=== PATIENT | male | born 1940 | race Caucasian/White ===

== ENCOUNTER → 2018-01-02 | Outpatient (CLI) | payer MEDICARE, BC ==
[2018-01-02 14:35] LABS: HEMATOCRIT 38.4 % (42.0-52.0); HEMOGLOBIN 13.1 g/dl (13.5-18.0); MEAN CELL VOLUME 100 fl (80.0-100.0); MEAN CORPUSCULAR HEMOGLOBIN 34 pg (27.0-31.0); MEAN CORPUSCULAR HGB CONC 34 g/dl (33.0-37.0); MEAN PLATELET VOLUME 9.3 fl (7.4-10.4); PLATELET COUNT 297 K/mm3 (130-400); RED BLOOD COUNT 3.86 M/mm3 (4.20-5.60); REDCELL DISTRIBUTION WIDTH-CV 12.2 % (11.5-14.5)
[2018-01-02 14:54] LABS: ERYTHROCYTE SEDIMENTATION RATE 16 mm/hr (0-30)
== END ==
LOC: COL.LAB 13:56
PROVIDERS: Orthopaedic Surgery
DX: M25.561 Pain in right knee (principal); M25.562 Pain in left knee; Z96.651 Presence of right artificial knee joint

== ENCOUNTER 2018-02-12 09:42 | Inpatient (IN) | payer MEDICARE, BC ==
[~2018-02-12] VITALS: Ht 172.7 cm; Wt 81.6 kg
[2018-03-11] MEDS ORDERED: OMEGA-3 1000 MG1 CAP PO (15:09)
[2018-03-11] MEDS ORDERED: OCUVITE1 TA1 PO (15:09)
[2018-03-11] MEDS ORDERED: TYLENOL 325MG325 MG PO (15:10)
[2018-03-11] MEDS ORDERED: VITAMIN C500 MG PO (15:10)
[2018-03-11] MEDS ORDERED: GLUCOSAMIN 500 PO (15:11)
[2018-03-11] MEDS ORDERED: COZAAR 50MG50 MG/TAB PO (15:11)
[2018-03-11] MEDS ORDERED: JANUVIA 100MG100 MG PO (15:11)
[2018-03-11] MEDS ORDERED: GLUCOPHAGE1000 MG PO (15:12)
[2018-03-11] MEDS ORDERED: NEURONTIN300 MG/CAP PO (15:12)
[2018-03-11] MEDS ORDERED: GLUCOTROL 5M5 MG/TAB PO (15:13)
[2018-03-11] MEDS ORDERED: NEURONTIN600 MG/TAB PO (15:13)
[2018-03-11] MEDS ORDERED: ZOCOR 40MG40 MG PO (15:13)
[2018-03-11] MEDS ORDERED: LANTUS100 U/ML SQ (15:14)
[2018-03-12] VITALS (12 sets, daily range): BP systolic 118–153; BP diastolic 46–76; PULSE 49–81; TEMP 97.9–98.8
[2018-03-12] MEDS ORDERED: TYLENOL 500MG500 MG PO (06:00)
[2018-03-12] MEDS ORDERED: PRAVACHOL 40MG40 MG PO (06:06)
[2018-03-12] MEDS ORDERED: ZYLOPRIM 300MG300 MG PO (06:06)
[2018-03-12] MEDS ORDERED: ULTRAM 50MG TAB50 MG PO (06:07)
[2018-03-12] MEDS ORDERED: LIORESAL 1010 MG/TAB PO (06:07)
[2018-03-12] MEDS ORDERED: PROTONIX 40MG T40 MG PO (06:08)
[2018-03-12 13:22] LABS: CALCIUM 8.9 mg/dL (8.4-10.2); CREATININE, serum 0.89 mg/dL (0.66-1.25); POTASSIUM 4.4 mmol/L (3.4-5.0)
[2018-03-12] MEDS ORDERED: GLUCOPHAGE1000 MG PO (19:19)
[2018-03-13 03:47] VITALS: BP 115/58; PULSE 75; TEMP 98.2
[2018-03-13 07:15] LABS: HEMOGLOBIN 11.3 g/dl (13.5-18.0)
[2018-03-13 07:18] VITALS: BP 127/57; PULSE 78; TEMP 98.5
[2018-03-13 07:19] LABS: HEMATOCRIT 33.7 % (42.0-52.0)
[2018-03-13 12:09] VITALS: BP 144/64; PULSE 78; TEMP 98.6
[2018-03-13 15:18] VITALS: BP 164/58; PULSE 99; TEMP 99.5
[2018-03-13 20:41] VITALS: BP 117/73; PULSE 98; TEMP 99.2
[2018-03-13 23:55] VITALS: BP 145/62; PULSE 106; TEMP 100.3
[2018-03-14 04:08] VITALS: BP 145/62; PULSE 106; TEMP 100.2
[2018-03-14 06:28] VITALS: TEMP 98.6
[2018-03-14 08:06] VITALS: BP 145/61; PULSE 63; TEMP 98.8
[2018-03-14] MEDS ORDERED: JANUVIA 100MG100 MG PO (09:42)
[2018-03-14] MEDS ORDERED: XARELTO10 MG PO (09:48)
[2018-03-14] MEDS ORDERED: ROXICODONE 55 MG/TAB PO (09:49)
[2018-03-14] MEDS ORDERED: NORCO 325 MG-7.1 TAB PO (09:49)
[2018-03-14] MEDS ORDERED: PROTONIX 40MG T40 MG PO (11:00)
[2018-03-14] MEDS ORDERED: TYLENOL 500MG500 MG PO (11:01)
[2018-03-14] MEDS ORDERED: ZANTAC 150MG T150 MG PO (11:02)
[2018-03-14] MEDS ORDERED: SENOKOT S 50 MG1 TAB PO (11:02)
[2018-03-14] MEDS ORDERED: MILK OF MA400 MG/52 PO (11:03)
[2018-03-14 12:09] VITALS: TEMP 98.1
== END 2018-03-14 12:32 | disposition home health service (06) | DRG 489 ==
LOC: JCC 03-12 05:02
PROVIDERS: Orthopaedic Surgery; Physician Assistant
PROC: 0SPC09Z Removal of Liner from Right Knee Joint, Open Approach (ICD-10-PCS; 2018-03-12)
PROC: 0SUV09Z Supplement Right Knee Joint, Tibial Surface with Liner, Open Approach (ICD-10-PCS; 2018-03-12)
PROC: 0SBC0ZZ Excision of Right Knee Joint, Open Approach (ICD-10-PCS; principal; 2018-03-12 07:30)
DX: T84.89XA Other specified complication of internal orthopedic prosthetic devices, implants and grafts, initial encounter (principal); E11.40 Type 2 diabetes mellitus with diabetic neuropathy, unspecified; I10 Essential (primary) hypertension; K21.9 Gastro-esophageal reflux disease without esophagitis; N40.0 Benign prostatic hyperplasia without lower urinary tract symptoms; M10.9 Gout, unspecified; E78.5 Hyperlipidemia, unspecified; Z79.84 Long term (current) use of oral hypoglycemic drugs; Z87.891 Personal history of nicotine dependence
CPT/HCPCS: 99223; 99232-AI; A4314; A9284; C1776; J0690; J1815; J2250; J2704; J7030; J7120

== ENCOUNTER → 2018-02-27 | Outpatient (CLI) | payer MEDICARE, BC ==
[2018-02-27 10:27] LABS: HIV 1/2 Antibodies Non-Reactive; HIV-1p24 Antigen Non-Reactive
== END ==
LOC: COL.LAB 08:39
PROVIDERS: Family Medicine
DX: Z01.812 Encounter for preprocedural laboratory examination (principal); M25.561 Pain in right knee

== ENCOUNTER 2018-10-12 06:57 | Day surgery (SDC) | payer MEDICARE, BC ==
[2018-10-12] VITALS (9 sets, daily range): BP systolic 117–155; BP diastolic 53–73; PULSE 56–86; TEMP 97.4–98.3
[~2018-10-12] VITALS: Ht 172.7 cm; Wt 77.3 kg
[~2018-10-12 06:57] MED LIST: COZAAR 50MG50 MG/TAB PO; GLUCOPHAGE1000 MG PO; GLUCOSAMIN 500 PO; GLUCOTROL 5M5 MG/TAB PO; JANUVIA 100MG100 MG PO; LANTUS100 U/ML SQ; LIORESAL 1010 MG/TAB PO; MILK OF MA400 MG/52 PO; NEURONTIN300 MG/CAP PO; NORCO 325 MG-7.1 TAB PO; OCUVITE1 TA1 PO; OMEGA-3 1000 MG1 CAP PO; PRAVACHOL 40MG40 MG PO; PROTONIX 40MG T40 MG PO; ROXICODONE 55 MG/TAB PO; STOOL SOFTENER100 M2 PO; TYLENOL 325MG325 MG PO; TYLENOL 500MG500 MG PO; ULTRAM 50MG TAB50 MG PO; VITAMIN C500 MG PO; XARELTO10 MG PO; ZANTAC 150MG T150 MG PO; ZOCOR 40MG40 MG PO; ZYLOPRIM 300MG300 MG PO
--- NOTE | 2018-10-12 12:00 | NUR ---
PATIENT ADMITED INTO ROOM 326 POST OP RIGHT SHOULDER SCOPE. RUE DRESSING IS CD&I WITH OCCLUSIVE TAPE AND ICE PACK. ABDUCTOR SLING TO RUE. NO C/O PAIN. PATIENT IS ABLE TO MOVE RUE FINGERS AND HAS GOOD CMS. VSS. HEAD TO TOE WNL. BS 136. NO C/O N/V. LIQUIDS AT BEDSIDE. IV FLUIDS INFUSING INTO LEFT HAND IV. ORIENTED TO ROOM. CALL LIGHT IN REACH. NO FAMILY OR FRIENDS AT BEDSIDE.
--- NOTE | 2018-10-12 17:00 | NUR ---
PATIENT INDEPENDENT IN ROOM. GAIT STEADY. PATIENT HAS BEEN TO BATHROOM X2 TO VOID. ATE 100% OF SUPPER. NO NEEDS.
--- NOTE | 2018-10-12 22:00 | NUR ---
ASSUMED CARE FOR ARCHITECTURE INTERN. ASSESSMENT COMPLETE. VS STABLE. DRESSING TO RIGHT [id number]/INTACT. IMMOBOLIZER/ABDUCTOR PILLOW ON. APPEARS TO BE TO LOW IN POSITIONING-REFUSING TO ALLOW NURSING STAFF TO ADJUST, STATES "ITS FINE, DONT WANT IT MOVED WHILE I AM IN BED." REFUSED SCD'S AND FINALLY ACCEPTED AFTER TEACHING DONE ON IMPORTANCE. DENIES PAIN. CALL LIGHT WITHIN REACH. BED IN LOW POSITIONS-WHEELS LOCKED. ENCOURAGED TO MYRNA FOR QUESTIONS OR CONCERNS. VERBALIZES UNDERSTANDING. WILL CONTINUE TO MONITOR.
--- NOTE | 2018-10-13 | NUR ---
THIS NURSE TO ROOM TO ADMINISTER ANTIBIOTICS. IMMOBOLIZER CLEARLY NOT IN PROPER PLACEMENT. REFUSES TO ALLOW FOR ANY ADJUSTEMENTS AT THIS TIME. STATES "LEAVE IT ALONE, ITS WHERE I WANT IT AND I CANT SLEEP ANYWAY." TEACHING COMPLETE ON PROPER POSITIONING. VERBALIZES UNDERSTANDING BUT REFUSES REPOSITIONING. STATES "CANT I JUST TAKE IT OFF." ENCOURAGED TO LEAVE ON AND TO ALLOW FOR ADJUSTMENT. STATES HE WILL LEAVE IT ON BUT WILL NOT ALLOW FOR AN ADJUSTMENT. ALSO REQUESTING SCD'S TO BE REMOVED. TEACHING COMPLETE ON NEED FOR SCD'S. VERBALIZES UNDERSTANDING AND MORE ACCEPTING OF SCDS. ENCOURAGED TO CALL FOR QUESTIONS OR CONCERNS. CALL LIGHT WITHIN REACH. BED IN LOW POSITION-WHEELS LOCKED. WILL MONITOR.
[2018-10-13 04:44] VITALS: BP 120/69; PULSE 70; TEMP 98.2
--- NOTE | 2018-10-13 05:20 | NUR ---
HAS RESTED OFF AND ON THROUGH THE NIGHT. DID LEAVE IMMOBOLIZER ON THROUGH THIS SHIFT. REFUSED HOT WATER FOR BOWEL REGIMEN TODAY. ICE PACK APPLIED. SCDS ON. CALL LIGHT WITHIN REACH. BED IN LOW POSITION/WHEELS LOCKED. WILL CONTINUE TO MONITOR.
--- NOTE | 2018-10-13 06:55 | NUR ---
awake resting in bed, bedside shift report received from ESSIE Zepeda
[2018-10-13 07:30] VITALS: BP 137/68; PULSE 92; TEMP 98.3
--- NOTE | 2018-10-13 08:45 | NUR ---
up in chair and has had breakfast and tolerated well, full assessment completed,
[2018-10-13] MEDS ORDERED: NORCO 325 MG-7.1 TAB PO (09:06)
[2018-10-13] MEDS ORDERED: ROXICODONE 55 MG/TAB PO (09:07)
--- NOTE | 2018-10-13 09:52 | NUR ---
have reviewed assessment completed by student nurse and in agreement with that assessment
--- NOTE | 2018-10-13 09:58 | NUR ---
MIQUEL and MIQUEL student met with the patient to discuss discharge plan. The patient lives alone in [place]. He states that his brother, Ermias, and his nephew live out of state, but that he has friend support in the community. He reports independence with ADLs and has cane, walker, and wheelchair. The patient's PCP is Dr. Tone Carter and he receives his medications by delivery through the [facility] in [place]. He reports no difficulties obtaining his meds. The patient's advanced directives are in EMR. MIQUEL discussed physical therapies recommendation of home health or continuing with the plan of outpatient therapy. The patient reports that he is unable to drive at this time, due to his arm and would not have transportation to outpatient therapy. The patient reports that he would be interested in home health. MIQUEL presented the patient with Medicare.gov's list of home health agencies that serve [place]. The patient chose [facility]. MIQUEL contacted and faxed a referral to Flaca at [facility]. Flaca reports that they are able to accept the patient for services. MIQUEL informed the patient and updates the patient's nurse. SW to continue to follow.
[2018-10-13 11:15] VITALS: BP 136/68; PULSE 86; TEMP 97.9
--- NOTE | 2018-10-13 11:41 | NUR ---
The patient is to discharge back home today, 10/13, with home health services for PT/OT through [facility]. No additional needs at this time.
--- NOTE | 2018-10-13 11:55 | NUR ---
discharge instructions given to patient, verbalizes understanding
--- NOTE | 2018-10-13 12:05 | NUR ---
discharged ambulatory to [facility] where his ride will pick him up
== END 2018-10-13 12:05 | disposition home or self-care (01) ==
LOC: SDCO 06:57 → SURG 12:00 → SDCO 14:00
DX: S46.011A Strain of muscle(s) and tendon(s) of the rotator cuff of right shoulder, initial encounter (principal); M19.90 Unspecified osteoarthritis, unspecified site; E11.9 Type 2 diabetes mellitus without complications; E78.00 Pure hypercholesterolemia, unspecified; G89.18 Other acute postprocedural pain; I10 Essential (primary) hypertension; K21.9 Gastro-esophageal reflux disease without esophagitis; G89.29 Other chronic pain; D64.9 Anemia, unspecified; Z79.84 Long term (current) use of oral hypoglycemic drugs; Z91.040 Latex allergy status; Z83.3 Family history of diabetes mellitus; Z82.49 Family history of ischemic heart disease and other diseases of the circulatory system; Z96.651 Presence of right artificial knee joint
CPT/HCPCS: OP; A4619; J0171; J0690; J1100; J1650; J2250; J2405; J2704; J2795; J3010; J7030

== ENCOUNTER 2019-01-06 11:09 | Inpatient (IN) | payer MEDICARE, BC ==
[~2019-01-06] VITALS: Ht 172.7 cm; Wt 80.0 kg
[2019-03-25] VITALS (12 sets, daily range): BP systolic 116–153; BP diastolic 60–80; PULSE 67–117; TEMP 97.5–98.6
--- NOTE | 2019-03-25 06:54 | NUR ---
PT PREPPED FOR SURGERY, VSS, PRE OP MEDS GIVEN , ACCUCHECK 128. PT A/O X3. TO SURGERY PER BED WITH CLAUDIO @ 7962.
--- NOTE | 2019-03-25 11:00 | NUR ---
PATIENT ARRIVED TO UNIT FROM PACU AT 1055. PATIENT IS ALERT AND ORIENTED AND VSS. PATIENT HAS IV IN LEFT FOREARM WITH NS RUNNING. PATIENT DOES HAVE LATEX ALLERGY. PATIENT HAS HISTORY OF HTM, GERD, AND BILATERAL LOWER EXTREM NEUROPATHY, AND TYPE 2 DM. PATIENT HAS 16 [place] LAFLEUR. URINE IS YELLOW AND CLEAR. PATIENT HAS FOAM TAPE DRESSING ON RIGHT SHOULDER WITH SLING AND ICE PACK APPLIED. PATIENT DENIES PAIN AT THIS TIME. CALL LIGHT WITHIN REACH, WILL CONTINUE TO MONITOR
--- NOTE | 2019-03-25 15:07 | NUR ---
MIQUEL met with the patient to discuss discharge plan. The patient lives alone in [place]. He states that his brother, Ermias (ph#[phone]), lives in [place]. He states that he has a good friend and neighbor, Niels Avila (ph#[phone]), that helps him out. He reports independence with ADLs and has a cane and walker. The patient's PCP is Dr. Tone Carter and he receives his medications at the [facility] in [place]. He reports no difficulties obtaining his meds. The patient does not have advanced directives in EMR, but he states that he does have them completed and at home. He states that he designated his neighbor, Niels. He also reports that his next of kin is his brother, Ermias. The patient reports that he plans to return home upon discharge and would be interested in home health services, instead of doing outpatient therapy. MIQUEL presented the patient with Medicare.gov's list of home health agencies that serve [place]. The patient chose [facility]. MIQUEL contacted and faxed a referral to Flaca at [facility]. Flaca reports that they can accept the patient for services. MIQUEL to inform the patient and will continue to follow.
--- NOTE | 2019-03-25 21:20 | NUR ---
CATHETER BULB DEFLATED OF 10ML OF SALINE, CATHETER THEN REMOVED WITHOUT ISSUE. PT TOLERATED WELL. PT UP TO BR AT THIS TIME AND VOIDED MODERATE AMOUNT WITHOUT ISSUES.
--- NOTE | 2019-03-25 22:09 | NUR ---
PT IS AWAKE, ALERT, OX4; REPORTING PAIN FROM CATHETER, BURNING. URINE YELLOW IN COLOR, CLEAR. PT REQUESTS CATHETER BE REMOVED IF POSSIBLE. PT DENIES OTHER NEEDS. REPORTS SOME DISCOMFORT TO R SHOULDER. RUE IN SLING WITH DRESSING IN PLACE, CDI.
[2019-03-26] VITALS: BP 122/61; PULSE 95; TEMP 98.1
[2019-03-26 04:00] VITALS: BP 129/65; PULSE 85; TEMP 98.4
--- NOTE | 2019-03-26 06:18 | NUR ---
PT CONTINUES TO C/O PAIN TO R SHOULDER UNRELIEVED BY PAIN MEDICATIONS. HYDROCODONE GIVEN AT THIS TIME. PT HAS BEEN UP NUMEROUS TIMES THROUGH THE NIGHT, AMBULATED IN HALLS. ICE HAS BEEN ON THE SHOULDER THIS AM. PA IN TO SEE PT THIS AM, POC DISCUSSED AND PT AGREEABLE TO DC. NEW ORDERS RECIEVED. CALL LIGHT WITHIN REACH.
[2019-03-26] MEDS ORDERED: ASPI325T6 PO (06:31)
[2019-03-26] MEDS ORDERED: NORCO 325 MG-7.1 TAB PO (06:32)
[2019-03-26] MEDS ORDERED: ROXICODONE 55 MG/TAB PO (06:33)
[2019-03-26] MEDS ORDERED: COLACE 100100 MG/CAP PO (06:34)
[2019-03-26 07:24] LABS: HEMOGLOBIN 11.3 g/dl (13.5-18.0)
[2019-03-26 07:32] LABS: HEMATOCRIT 34.3 % (42.0-52.0)
[2019-03-26 07:48] VITALS: BP 137/57; PULSE 83; TEMP 98
--- NOTE | 2019-03-26 09:00 | NUR ---
Patient sat up on the side of bed to eat breakfast. He needs a lot of reminders to follow his restrictions with his right arm. He keeps trying to do too much with his arm. Patient stated the sling is not fitting right. Offered to try to get a better fit but he stated he one at home that fits better. CMS is intact to right arm/hand. Dressing is C/D/I to right shoulder. No other changes at this time. Call light within reach.
--- NOTE | 2019-03-26 09:57 | NUR ---
The patient is to discharge back home today, 03/26, with home health services for PT/OT through [facility]. MIQUEL contacted and faxed the patient's orders to Flaca at [facility]. Transportation back home to be provided by his friend. No additional needs at this time.
--- NOTE | 2019-03-26 10:40 | NUR ---
Patient is discharging home. Discharge instructions discussed with patient. He knows he has prescriptions to strip picker. His ride is coming from [place]. Explained he has to have a staff member walk with him when he leaves. Copies of discharge instructions sent with patient. Changed dressing from the foam/gauze to an acquacel. Steri-strips to incision, well approximated, no drainage or edema to right shoulder. All belongings packed up and sent with patient. Patient is discharging with home health.
== END 2019-03-26 10:35 | disposition home health service (06) | DRG 483 ==
LOC: JCC 02-23 07:30 → SURG 03-25 05:31 → JCC 03-25 07:30 → SURG 03-26 10:35
PROVIDERS: ADMIT Orthopaedic Surgery
PROC: 0RRJ00Z Replacement of Right Shoulder Joint with Reverse Ball and Socket Synthetic Substitute, Open Approach (ICD-10-PCS; principal; 2019-03-25 07:30)
DX: M75.101 Unspecified rotator cuff tear or rupture of right shoulder, not specified as traumatic (principal)
CPT/HCPCS: A4314; A4566; A4619; A9284; C1713; C1776; J0690; J2250; J2270; J2405; J2704; J2795; J3010; J7030

== ENCOUNTER → 2019-03-08 | Outpatient (CLI) | payer MEDICARE, BC ==
[2019-03-08 11:00] LABS: HEMOGLOBIN 12.3 g/dl (13.5-18.0); MEAN CELL VOLUME 99 fl (80.0-100.0); MEAN CORPUSCULAR HEMOGLOBIN 33 pg (27.0-31.0); MEAN CORPUSCULAR HGB CONC 34 g/dl (33.0-37.0); MEAN PLATELET VOLUME 9.4 fl (7.4-10.4); PLATELET COUNT 296 K/mm3 (130-400); RED BLOOD COUNT 3.68 M/mm3 (4.20-5.60); REDCELL DISTRIBUTION WIDTH-CV 12.2 % (11.5-14.5)
[2019-03-08 11:08] LABS: HEMATOCRIT 36.3 % (42.0-52.0)
[2019-03-08 11:30] LABS: ERYTHROCYTE SEDIMENTATION RATE 18 mm/hr (0-30)
== END ==
LOC: COL.LAB 10:22
PROVIDERS: Orthopaedic Surgery
DX: M25.561 Pain in right knee (principal); Z96.651 Presence of right artificial knee joint

== ENCOUNTER 2019-07-07 09:23 | Inpatient (IN) | payer MEDICARE, BC ==
[~2019-07-07] VITALS: Ht 172.7 cm; Wt 83.1 kg
[~2019-07-07 09:23] MED LIST changes: +ASPI325T6 PO; +COLACE 100100 MG/CAP PO
[2019-08-30] VITALS (9 sets, daily range): BP systolic 123–159; BP diastolic 45–69; PULSE 58–94; TEMP 97.9–98.5
[2019-08-30] MEDS ORDERED: PRINIVIL20 MG PO (07:37)
[2019-08-30] MEDS ORDERED: ZOCOR 40MG40 MG PO (07:38)
[2019-08-30] MEDS ORDERED: GLUCOVANCE 1.251 TAB PO (08:15)
[2019-08-30] MEDS ORDERED: GLUCOSAMINE 1000 PO (08:19)
[2019-08-30] MEDS ORDERED: VOLTAREN GEL 1%1 TU TP (08:21)
[2019-08-30] MEDS ORDERED: ROBAFEN COUGH PO (08:23)
[2019-08-30] MEDS ORDERED: PROTONIX 40MG T40 MG PO (08:25)
[2019-08-30] MEDS ORDERED: OCUVITE1 TA1 PO (08:25)
[2019-08-30] MEDS ORDERED: MYCOGEN CR 30GM TP (08:28)
[2019-08-30] MEDS ORDERED: FISH OIL 1000MG1 CAP PO (08:29)
[2019-08-30 10:53] LABS: SYNOVIAL FL. MONONUCLEAR 65.4 % (0-75); SYNOVIAL FLUID APPEARANCE HAZY; SYNOVIAL FLUID COLOR YELLOW; SYNOVIAL FLUID RBC 2000 /mm3 (0-0); SYNOVIAL FLUID WBC 1552 /mm3 (200-600)
--- NOTE | 2019-08-30 14:11 | NUR ---
Report from Gilda in pacu. Patient drowsy, arouses to name. No signs of pain. Vss on O2. Rle cyrocuff in place. Aquacell dresssing intact. Teds & scds Ble. Ivf per orders. Will let patietn rest
--- NOTE | 2019-08-30 15:38 | NUR ---
SW met with the patient to discuss discharge plan. The patient lives in [place] with a roommate and the roommate's son. He reports independence with ADLs prior to hospitalization and has a cane and walker. The patient's PCP is Dr. Tone Carter and he receives his medications at [facility] in [place]. He reports no difficulties obtaining his meds. The patient's advanced directives are in EMR. His DPOA-HC is his brother, Ermias (ph#[phone]). He states that Ermias lives in [place]. The patient states that he has friend support in [place], but that they are all busy right now. SW to continue to follow to ensure a safe discharge.
--- NOTE | 2019-08-30 19:02 | NUR ---
Patient resting in bed. He appears to be more comfortable after one tab roxicodone. Patient was reluctant to take narcotic pain medication, he has fears of constipation. He was given tylenol before narcotics & did not seem to have any pain relief. R.knee cyrocuff in place. Aquacell dressing intact. TEds & scds. Ivf per orders. Patient sat up in bed & brushed his teeth. Report to night nurse
--- NOTE | 2019-08-30 21:30 | NUR ---
Patient doing well tonight. alert and oriented. c/o moderate pain 7/10 to R knee. prn terrence and tylenol being given. aquacell to R knee CDI. Teds in place. cryocuff in place. barry catheter to DD, draining pale yellow clear urine. IV to L wrist infusing without issue. took scheduled medications without issue. patients WBG was 270 at 2100, reported to JUSTO Arndt, order for low dose SSI. no further needs at this time. will continue to monitor.
[2019-08-31] VITALS: BP 123/70; PULSE 95; TEMP 98.8
[2019-08-31 03:25] VITALS: BP 143/63; PULSE 95; TEMP 99.6
--- NOTE | 2019-08-31 07:00 | NUR ---
awake resting in bed, bedside shift report received from ESSIE Hutotn
[2019-08-31 07:25] LABS: HEMOGLOBIN 10.6 g/dl (13.5-18.0)
[2019-08-31 07:38] LABS: HEMATOCRIT 31.3 % (42.0-52.0)
--- NOTE | 2019-08-31 07:59 | NUR ---
had breakfast and tolerated well, now watching TV, full assessment completed, see interventions for further info, denies needs at this time
[2019-08-31 08:02] VITALS: BP 150/68; PULSE 99; TEMP 99.4
--- NOTE | 2019-08-31 08:50 | NUR ---
resting in bed watching TV, denies needs
--- NOTE | 2019-08-31 10:00 | NUR ---
physical and occupational therapy in and worked with patient, assisted up and ambulated and now sitting in recliner
--- NOTE | 2019-08-31 11:00 | NUR ---
remains up in recliner, denies needs at this time
--- NOTE | 2019-08-31 11:50 | NUR ---
c/o pain to right knee, medicated with roxicodone 5mg
[2019-08-31 12:59] VITALS: BP 129/63; PULSE 98; TEMP 98.7
--- NOTE | 2019-08-31 13:00 | NUR ---
barry catheter discontinued, states relief of pain after roxicodone
--- NOTE | 2019-08-31 13:40 | NUR ---
physical therapy in and worked with helen and then assisted back to bed
--- NOTE | 2019-08-31 13:46 | NUR ---
MIQUEL met with the patient to review discharge plan and to discuss PT's recommendation of home health vs outpatient therapy. The patient reports that he would be interested in home health. SW provided the patient with Medicare.gov's list of home health agencies that serve [place]. The patient chose [facility]. MIQUEL attempted to contact Flaca at [facility]. MIQUEL left her a voicemail and faxed over the referral. SW awaiting their screen.
--- NOTE | 2019-08-31 14:45 | NUR ---
appears to be sleeping, in bed with lights off, eyes closed, resp quiet and easy
--- NOTE | 2019-08-31 15:12 | NUR ---
up to bathroom and voided qs and then out and will sit up in recliner
--- NOTE | 2019-08-31 15:41 | NUR ---
visitor informed nurse he was confused when she was in to visit and that he was having pain, went to get a pain pill and while doing so he was found ambulating in [place] indpendently, thought he was at home, reoriented and then he finally remembered he was in the hospital, back to room and into bed with bed alarm on, medicated with hydrocodone 7.5mg 1 tab
--- NOTE | 2019-08-31 16:40 | NUR ---
assisted up to bathroom and continues to c/o pain with movement and cries out, medicated with second hydrocodone 7.5mg 1 tab, T 101.5 and he was encouraged to C&DB, also encouraged to use incentive spiromter, and blankets removed, continues to be forgetful and reorients
[2019-08-31 17:03] VITALS: BP 138/83; PULSE 113; TEMP 101.5
--- NOTE | 2019-08-31 17:15 | NUR ---
sitting up in bed eating supper, when asked about where he was he knew Augustinerosariostevenson, after discussing further he was able to look around the room and state via [place]
--- NOTE | 2019-08-31 19:10 | NUR ---
bedside shift report given to ESSIE Ingram
[2019-08-31 20:10] VITALS: BP 140/66; PULSE 102; TEMP 98
--- NOTE | 2019-08-31 20:10 | NUR ---
Pt. sitting up in bed this time. Pt. is A&OX3, assessment complete. INT to lt. hand patent. Aquacell dressing to rt. knee, minimal drainage noted. Pt. reported pain at a 5 on pain scale, gave pain meds per orders. Pt. denies further needs.
[2019-09-01] VITALS (256 sets, daily range): BP systolic 93–142; BP diastolic 35–80; PULSE 104–118; TEMP 98.7–100.2; O2SAT 79–100
[2019-09-01] MEDS ORDERED: NORCO 325 MG-7.1 TAB PO (06:51)
[2019-09-01] MEDS ORDERED: XARELTO10 MG PO (06:51)
[2019-09-01] MEDS ORDERED: ROXICODONE 55 MG/TAB PO (06:52)
--- NOTE | 2019-09-01 07:45 | NUR ---
Student nurse reported to this nurse abnormal vitals. Vitals rechecked Patient is Tachycardic, low grade temp & placed on O2, low O2 sats. Patient denies complaints other than Right knee pain. One tab Roxicodone given & [facility] called. Call back number left, no answer. Called both Naye Norris & . They had already rounded early this am & wrote discharge orders.
--- NOTE | 2019-09-01 08:00 | NUR ---
Pt laying in bed. Alert & Orientated. Apical pulse tachycardic, 107 bpm. O2 sat @ 89. 2 liters O2 placed per nasal cannula. W/in 5 mins, O2 sats up to 96. Incision to rt knee w/ aquacell dressing. CDI. GREY hose on, bilat. Pt reports 5/10 pain level.
--- NOTE | 2019-09-01 08:20 | NUR ---
Still no return phonecall, called catrachito arizmendi the ortho nurse at the office, she will attempt to notify . Patient sitting at edge of bed working on breakfast. Student nurse continues to assist with care, vitals remain the same.
--- NOTE | 2019-09-01 08:50 | NUR ---
Again called ortho office still no return call regaurding patient. Voicemail left again.
--- NOTE | 2019-09-01 09:05 | NUR ---
Finally a return phone call from Orthopedics. Orders obtained. Hospitalist made aware of consult. Ekg, abg,chest xray, labs, to be completed. Patient continues to deny complaints. Made him aware of plan of care. Therapy to work with patient.
[2019-09-01 09:28] LABS: MEAN CELL VOLUME 98 fl (80.0-100.0); MEAN CORPUSCULAR HGB CONC 34 g/dl (33.0-37.0); MEAN PLATELET VOLUME 9.6 fl (7.4-10.4); PLATELET COUNT 221 K/mm3 (130-400); RED BLOOD COUNT 2.83 M/mm3 (4.20-5.60); REDCELL DISTRIBUTION WIDTH-CV 12.5 % (11.5-14.5)
[2019-09-01 09:29] LABS: ARTERIAL BLD GAS O2 SATURATION 95.1 % (92-100); ARTERIAL BLD GAS TCO2 CT 20.5; ARTERIAL BLOOD GAS BASE EXCESS -4.1 (-2-2); ARTERIAL BLOOD GAS HCO3 19.6 meq/L (22-26); ARTERIAL BLOOD GAS PCO2 30.7 mmHg (35-45); ARTERIAL BLOOD GAS PO2 78.1 mmHg (80-100); ARTERIAL BLOOD GAS pH 7.42 (7.35-7.45)
[2019-09-01 09:34] LABS: HEMATOCRIT 27.7 % (42.0-52.0); HEMOGLOBIN 9.3 g/dl (13.5-18.0); MEAN CORPUSCULAR HEMOGLOBIN 33 pg (27.0-31.0)
[2019-09-01 09:38] LABS: ALBUMIN 3.9 gm/dL (3.5-5.0); CALCIUM 8.4 mg/dL (8.4-10.2); CREATININE, serum 1.06 (0.66-1.25); POTASSIUM 4.4 mmol/L (3.4-5.0); TOTAL PROTEIN 7.1 gm/dL (6.4-8.2)
[2019-09-01 09:38] LABS: COLLECTION METHOD CLEAN CATCH
[2019-09-01 09:45] LABS: PH 6 (5-8); SQUAMOUS EPITHELIAL None Seen /hpf; URINE APPEARANCE Clear; URINE BACTERIA None Seen /hpf; URINE BILIRUBIN Negative (NEGATIVE); URINE BLOOD Negative (NEGATIVE); URINE COLOR Yellow; URINE GLUCOSE 3+ (NEGATIVE); URINE KETONE Trace (NEGATIVE); URINE LEUKOCYTE ESTERASE Negative (NEGATIVE); URINE NITRATE Negative (NEGATIVE); URINE PROTEIN(semi-quant) Negative (NEGATIVE); URINE RBC 0-2 /hpf; URINE UROBILINOGEN Negative (NEGATIVE); URINE WBC 0-2 /hpf
[2019-09-01 10:21] LABS: BAND 1 % (0-10); LYMPHOCYTE 9 % (20.0-51.0); NEUTROPHILS 79 % (42.0-75.2); PLATELET ESTIMATE NORMAL (NORMAL)
--- NOTE | 2019-09-01 11:11 | NUR ---
Hospitalsit rounded, orders received. Tele placed. He remains on O2.
[2019-09-01 11:47] LABS: TROPONIN-I < 0.012 ng/mL (0.000-0.035)
--- NOTE | 2019-09-01 12:00 | NUR ---
Initial visit; Patient thanked Edge Inker Uppers for looking in on him and offering God's blessings.
--- NOTE | 2019-09-01 12:59 | NUR ---
Noris returned from Ct. notifed this nurse of PE on imaging. Called report to Dr. Benavides. Heparin drip to be doses by pharmacy, plans of patient to go to ICU when bed avaliable. Attempted again to call Orthopedics. Call back number left, also called office nurse to notify
--- NOTE | 2019-09-01 13:40 | NUR ---
New Iv started for Heparin drip to R.wrist by angela Skinner. Heparin started per orders & protocol. Plan of care reviewed with patient and Ortho aware as well.
[2019-09-01 14:03] LABS: INR 1.6 (0.8-3.0); PROTHROMBIN TIME 18.5 SECONDS (9.7-12.8)
[2019-09-01 14:05] LABS: PARTIAL THROMBOPLASTIN TIME 36.6 SECONDS (26.0-37.0)
--- NOTE | 2019-09-01 14:13 | NUR ---
Verifed with pharmacy, orders to continue heparin drip even though Hep xa critical at 1.16 because Ptt is in normal rage. Will monitor patient closely.
--- NOTE | 2019-09-01 16:01 | NUR ---
Report to El in ICU, will wait for bed avalibility
--- NOTE | 2019-09-01 16:50 | NUR ---
Pt transferred down from surgical unit to [facility] bed 17. Report received prior to arrival from ESSIE Lyman. Pt arrived via wheelchair and reported no complaints or concerns after transfer. Vitals stable upon arrival. Will continue to monitor. Heparin gtt verified at 1500 units/hr or 15 ml/hr with ESSIE Lyman at bedside.
--- NOTE | 2019-09-01 17:15 | NUR ---
Patient to Icu 17. Patient used bedside commode. Passed flatus, no Bm.
--- NOTE | 2019-09-01 19:20 | NUR ---
Received report from ESSIE Gallegos.
--- NOTE | 2019-09-01 19:26 | NUR ---
Bedside report given to ESSIE Dugan.
--- NOTE | 2019-09-01 20:19 | NUR ---
During shift change report, staff informed that patient's heparin drip to be dosed by pharmacy pending most recent HepXa result. Pharmacy notified of patient's 1915 HepXa result of 1.32 - was told HepXa results would be inaccurate due to patient's history of taking Xarelto and that a PTT would be required to appropriately dose drip. PTT ordered. Received the following directions from pharmacy: PTT goal while on heparin is 50-80 seconds, at this level, heparin drip to be continued at current rate with PTT recheck in 6 hours. If PTT > 90 seconds, hold drip one hour and decrease by 1 mL/hour, with PTT recheck 6 hours from resuming drip. If PTT > 100 seconds, hold drip one hour and decrease by 2 mL/hour, with PTT recheck [address] drip[address] Lau notified of HepXa level and pharmacy directions. Received orders to follow directions indicated by pharmacy. Patient's PTT resulted as 140.3 seconds. Pharmacy notified. Received instructions to hold heparin drip throughout NOC and to recheck coagulation panel with [address] Lau notified and agreed with pharmacy. Heparin drip on hold at this time. Will continue to monitor.
[2019-09-02] VITALS (1116 sets, daily range): BP systolic 114–146; BP diastolic 52–69; PULSE 87–100; TEMP 98–99.2; O2SAT 68–100
[2019-09-02 05:40] LABS: BASO % 0.3 % (0.0-2.0); EOS # 0.2 (0.0-0.7); EOS % 2.1 % (0-4.0); GRAN # 7.8 (1.4-6.5); GRAN % 66.8 % (42.2-75.2); LYMPH # 1.7 (1.2-3.4); LYMPH % 14.1 % (20.0-51.0); MEAN CELL VOLUME 98 fl (80.0-100.0); MEAN CORPUSCULAR HGB CONC 34 g/dl (33.0-37.0); MEAN PLATELET VOLUME 9.4 fl (7.4-10.4); MONO # 1.9 (0.1-0.6); MONO % 15.9 % (1.7-9.3); PLATELET COUNT 193 K/mm3 (130-400); RED BLOOD COUNT 2.39 M/mm3 (4.20-5.60); REDCELL DISTRIBUTION WIDTH-CV 12.7 % (11.5-14.5)
[2019-09-02 05:41] LABS: HEMATOCRIT 23.5 % (42.0-52.0); HEMOGLOBIN 7.9 g/dl (13.5-18.0); MEAN CORPUSCULAR HEMOGLOBIN 33 pg (27.0-31.0)
[2019-09-02 05:55] LABS: CALCIUM 7.8 mg/dL (8.4-10.2); CREATININE, serum 1.04 (0.66-1.25)
[2019-09-02 06:35] LABS: INR 1.2 (0.8-3.0); PROTHROMBIN TIME 13.7 SECONDS (9.7-12.8)
--- NOTE | 2019-09-02 07:30 | NUR ---
Bedside report given to ESSIE Gibson.
--- NOTE | 2019-09-02 07:47 | NUR ---
Dr. Hutton at patient bedside at approx. 0715. Notified of patient's hemoglobin drop from 9.3 yesterday AM, to 7.9 this morning. Also notified Dr. Hutton that heparin drip had been on hold since approx. 1999 last night per directions from pharmacy and Dr. Lau. Dr. Hutton stated he would prefer that patient continue Xarelto versus the heparin drip, but that hospitalist would ultimately make that decision. After speaking with Dr. Hutton, Dr. Miller notified of AM lab results and of conversation with Dr. Hutton. Received orders to redraw PTT and to call him with results.
--- NOTE | 2019-09-02 08:43 | NUR ---
SPOKE WITH DR IRAHETA REGARDING HEPARIN GTT. WILL RESTART HEPARIN AT 1500 UNITS/HR AND THEN RECHECK PTT AND HEPXA IN 6 HOURS. DISCUSSED WITH PHARMACY WELL REGARDING PLAN WITH HEPRIN GTT.
--- NOTE | 2019-09-02 09:33 | NUR ---
BUSINESS SYSTEMS MANAGER student contacted Flaca from [facility] and she reports they can accept the patient for home health services. Social serivces will continue to monitor.
--- NOTE | 2019-09-02 11:22 | NUR ---
PT WEANED TO ROOM AIR. O2 SAT 99-100%
[2019-09-02 14:28] LABS: PARTIAL THROMBOPLASTIN TIME 30.6 SECONDS (26.0-37.0)
[2019-09-02 14:37] LABS: HEMATOCRIT 25.5 % (42.0-52.0); HEMOGLOBIN 8.3 g/dl (13.5-18.0)
--- NOTE | 2019-09-02 16:14 | NUR ---
CUSTOMER ACQUISITION MANAGER student met with the patient to inform him that [facility] can accept the patient for services.
--- NOTE | 2019-09-02 17:26 | NUR ---
IV TO RIGHT WRIST AND LEFT WRIST BOTH BEGAN LEAKING. IVS REMOVED. 22G IV INSERTED TO RIGHT FOREARM.
--- NOTE | 2019-09-02 19:30 | NUR ---
Received report from ESSIE Gibson.
[2019-09-03] VITALS (409 sets, daily range): BP systolic 126–144; BP diastolic 47–66; PULSE 82–99; TEMP 97.8–98.5; O2SAT 82–100
[2019-09-03 07:00] LABS: BASO # 0.1 (0.0-0.2); BASO % 0.6 % (0.0-2.0); EOS # 0.5 (0.0-0.7); EOS % 5.4 % (0-4.0); GRAN # 6.2 (1.4-6.5); GRAN % 64.3 % (42.2-75.2); LYMPH # 1.6 (1.2-3.4); LYMPH % 16.8 % (20.0-51.0); MEAN CELL VOLUME 99 fl (80.0-100.0); MEAN CORPUSCULAR HGB CONC 34 g/dl (33.0-37.0); MEAN PLATELET VOLUME 9.5 fl (7.4-10.4); MONO # 1.2 (0.1-0.6); MONO % 12.3 % (1.7-9.3); PLATELET COUNT 283 K/mm3 (130-400); RED BLOOD COUNT 2.67 M/mm3 (4.20-5.60); REDCELL DISTRIBUTION WIDTH-CV 12.6 % (11.5-14.5)
[2019-09-03 07:02] LABS: HEMATOCRIT 26.3 % (42.0-52.0); HEMOGLOBIN 8.8 g/dl (13.5-18.0); MEAN CORPUSCULAR HEMOGLOBIN 33 pg (27.0-31.0)
[2019-09-03 07:06] LABS: CALCIUM 8.6 mg/dL (8.4-10.2); CREATININE, serum 0.9 (0.66-1.25); MAGNESIUM 2.2 mg/dL (1.6-2.3); POTASSIUM 3.7 mmol/L (3.4-5.0)
--- NOTE | 2019-09-03 09:35 | NUR ---
REPORT CALLED TO ALFREDO RN ON SURGICAL. ALL QUESTIONS ANSWERED. WILL TAKE PT UP BY WHEELCHAIR.
--- NOTE | 2019-09-03 09:45 | NUR ---
Patient arrived to floor from [facility] via wheelchair. Patient x2 assist transfer to bed. Patient reports pain with movement, but states that he is otherwise comfortable. Patient denies needs at this time, call light within reach.
--- NOTE | 2019-09-03 11:51 | NUR ---
MIQUEL met with the patient and his friends (Charu & Maciej) to review discharge plan and to discuss PT's recommendation of home health vs SNF. The patient reports that he prefers to return home with home health health through [place]. He states that he would be able to get him self up and to the bathroom and would be able to make himself food. SW to continue to follow.
--- NOTE | 2019-09-03 13:06 | NUR ---
In to visit with patient at 1230 this afternoon. Patient was eating his noon meal. Patiemt alert and oriented x 3, able to tell his name, , where his is at and what room. He also able to voice no pain, just cold, so gave a warm blanket. Patient had retruned from IMCU r/t a PE to left lung. Sidney hose on bilateral and ice pack to right knee. No Edema noted, cap refill to bilateral lower extremities less than 3 seconds. Patient was able deep breathe and cough, was able to get to 500 on IS 10 times. Patient is asking to go home. Provider in to see and talk with patient. Working on plan to go home in the near furture as of this afternoon.
--- NOTE | 2019-09-03 13:18 | NUR ---
Visited with kenisha Lino with report of previous note. Patient will be discharged this afternoon.
[2019-09-03] MEDS ORDERED: XARELTO20 MG PO (13:20)
[2019-09-03] MEDS ORDERED: XARELTO15 MG PO (13:20)
--- NOTE | 2019-09-03 13:39 | NUR ---
The patient is to discharge back home today, 09/03, with home health services for PT/OT/group home through [facility]. MIQUEL contacted and faxed the patient's discharge orders to Flaca at [facility]. Flaca reports that she will contact the patient today to set up a time to see him this weekend. MIQUEL presented and explained the IM form to the patient. The patient verbalized understanding, signed, and he was provided a copy. No additional needs at this time.
--- NOTE | 2019-09-03 14:04 | NUR ---
Discharge teaching completed. Discussed dressing change, follow up appointment, blood thinner, discharge prescriptions. Patient verbalized understanding. INT removed, catheter intact, hemostasis achieved. Patient confirmed all personal belongings were gathered and was escorted to visitor entrance, where he entered a private vehicle.
== END 2019-09-03 14:04 | disposition home or self-care (01) | DRG 467 ==
LOC: JCC 08-30 06:25 → IMCU 09-01 17:22 → JCC 09-03 09:45
PROVIDERS: Hospitalist; Nurse Practitioner Family; Physician Assistant; Student in an Organized Health Care Education/Training Program; ADMIT Orthopaedic Surgery
PROC: 0SRC0J9 Replacement of Right Knee Joint with Synthetic Substitute, Cemented, Open Approach (ICD-10-PCS; 2019-08-30)
PROC: 0SPC0JZ Removal of Synthetic Substitute from Right Knee Joint, Open Approach (ICD-10-PCS; principal; 2019-08-30 09:45)
DX: T84.89XA Other specified complication of internal orthopedic prosthetic devices, implants and grafts, initial encounter (principal); E87.1 Hypo-osmolality and hyponatremia; I26.99 Other pulmonary embolism without acute cor pulmonale; M23.51 Chronic instability of knee, right knee; E11.9 Type 2 diabetes mellitus without complications; I10 Essential (primary) hypertension; E78.5 Hyperlipidemia, unspecified; Z79.891 Long term (current) use of opiate analgesic; Z91.040 Latex allergy status; R50.82 Postprocedural fever; K21.9 Gastro-esophageal reflux disease without esophagitis; E87.8 Other disorders of electrolyte and fluid balance, not elsewhere classified; R91.1 Solitary pulmonary nodule
CPT/HCPCS: 99223; 99232-AI; 99233-AI; A4314; A9284; C1713; C1776; J0690; J1644; J1815; J2250; J2543; J2704; J3260; J3370; J7030; J7050; Q9967

== ENCOUNTER → 2019-08-23 | Outpatient (CLI) | payer MEDICARE, BC ==
[2019-08-23 12:32] LABS: HIV 1/2 Antibodies Non-Reactive; HIV-1p24 Antigen Non-Reactive
== END ==
LOC: COL.LAB 10:23
PROVIDERS: Orthopaedic Surgery
DX: Z96.651 Presence of right artificial knee joint (principal)